=== PATIENT | male | born 1930 | race Caucasian/White ===

== ENCOUNTER 2018-02-15 05:56 | Inpatient (IN) | payer MEDICARE, BC ==
[~2018-02-15] VITALS: Ht 172.7 cm; Wt 83.3 kg
[~2018-02-15 05:56] MED LIST: ACET325T14 PO; ACYC500V IV; ALLO100T30 PO; ALLO300T PO; AMIT25TA PO; AMLO5TAB4 PO; CARB1TAB PO; DORZ10DR26 OP; GLYB5TAB PO; HYDR-3240 PO; INSU100V11 SQ; ISOS20TA3 PO; LATA2.5D2 OP; LEVO25TA2 PO; LISI-167 PO; METF10002 PO; METF500T17 PO; METO25TA4 PO; ONDA4TAB7 PO; PANT40TA3 PO; POLY17PO5 PO; RAMI2.5C2 PO; ROSU20TA PO; SENN-31 PO; TAMS0.4C2 PO; VERA120T PO; WARF-36 PO
[2018-02-15] MEDS ORDERED: PIPERACILLIN/TAZO/PMX 3.375GM 50 ML ONE (06:22)
[2018-02-15] MEDS ORDERED: SODIUM CHLORIDE 0.9% 1,000ML IVBOLUS ONE (06:30)
[2018-02-15] MEDS ORDERED: PIPERACILLIN/TAZO/PMX 3.375GM 50 ML IVPB ONE (06:30)
[2018-02-15] MEDS ORDERED: VANCOMYCIN 1,600 MG in SODIUM CHLORIDE 0.9% 250 ML IV ONE (06:30)
[2018-02-15] MEDS ORDERED: VANCOMYCIN PER PHARMACY IV ONE (06:30)
[2018-02-15 06:48] LABS: INTERNATIONAL NORMALIZED RATIO 1.51 (0.93-1.1); PROTHROMBIN TIME 15.8 Seconds (9.6-11.5)
[2018-02-15 06:52] LABS: ALANINE AMINOTRANSFERASE 35 U/L (12-78); ALBUMIN 3.2 g/dL (3.4-5.0); ANION GAP 10 mmol/L (5-15); CALCIUM 9.4 mg/dL (8.5-10.1); CHLORIDE 100 mmol/L (98-107); CREATININE 1.32 mg/dL (0.7-1.3)
[2018-02-15 06:55] LABS: ALKALINE PHOSPHATASE 111 U/L (45-117); BILIRUBIN,TOTAL 1.2 mg/dL (0.2-1.0); TOTAL PROTEIN 9.3 g/dL (6.4-8.2)
[2018-02-15] MEDS ORDERED: OMNIPAQUE 350 MG/ML, 100ML BOTTLE ONE (07:52)
[2018-02-15 07:59] LABS: BASOPHILS # (AUTO) 0.02 x10^3/uL (0-0.1); BASOPHILS % (AUTO) 0 % (0-1); EOSINOPHILS # (AUTO) 0.03 x10^3/uL (0-0.4); EOSINOPHILS % (AUTO) 0 % (1-7); LYMPHOCYTES # (AUTO) 0.88 x10^3/uL (1-3.4); LYMPHOCYTES % (AUTO) 6 % (22-44); MD NO; MEAN CORPUSCULAR HGB CONC 33.6 g/dL (33.2-36.2); MEAN CORPUSCULAR VOLUME 101.2 fL (81-97); MEAN PLATELET VOLUME 8.8 fL (7.4-10.4); MONOCYTES # (AUTO) 1.22 x10^3/uL (0.2-0.8); MONOCYTES % (AUTO) 9 % (2-9); NEUTROPHILS # (AUTO) 12.23 x10^3/uL (1.8-6.8); NEUTROPHILS % (AUTO) 85 % (42-75); PLATELET COUNT 278 x10^3/uL (130-400); RED CELL DISTRIBUTION WIDTH 14.8 % (9.4-14.8)
[2018-02-15] MEDS ORDERED: LIDOCAINE 1%-EPI 1:100K, 20ML INFIL ONE (08:00)
[2018-02-15] MEDS ORDERED: morphine SULFATE 10 MG/ML, 1ML IVPush PRN (09:00)
[2018-02-15] MEDS ORDERED: ISOSORBIDE MONONITRATE ER 30 MG TABLET PO SCH (09:00)
[2018-02-15] MEDS ORDERED: SODIUM CHLORIDE 0.9% 1,000 ML IV SCH (09:00)
[2018-02-15] MEDS ORDERED: ACETAMINOPHEN 325 MG TABLET PO PRN (09:00)
[2018-02-15] MEDS ORDERED: VANCOMYCIN PER PHARMACY MC PRN (09:00)
[2018-02-15] MEDS ORDERED: ISOSORBIDE MONONITRATE 20 MG TABLET PO SCH ×2 (09:00)
[2018-02-15] MEDS ORDERED: ENALAPRILAT 1.25 MG/ML, 2ML IVPush PRN (09:00)
[2018-02-15] MEDS ORDERED: PHARMACOKINETIC CONSULTATION MC ONE (09:30)
[2018-02-15] MEDS: AMLODIPINE 10 MG TAB PO SCH (09:39)
[2018-02-15] MEDS: ALLOPURINOL 100 MG TABLET PO SCH (09:39)
[2018-02-15] MEDS: METOPROLOL TARTRATE 25 MG TABLET PO SCH ×2 (09:40→20:52)
[2018-02-15] MEDS ORDERED: PHARMACOKINETIC MONITORING MC PRN (10:00)
[2018-02-15 10:12] LABS: HCT (SEDRATE) 46.6 % (39.2-51.8)
[2018-02-15 10:23] LABS: CULTURE INDICATED? YES; MICROSCOPIC AUTO
[2018-02-15] MEDS: CARBIDOPA/LEVODOPA 10 MG/100 MG TABLET PO SCH ×3 (10:34→20:51)
[2018-02-15 11:35] VITALS: BP 159/87
[2018-02-15] MEDS: INSULIN LISPRO 100 UNITS/ML, PEN SQ-INSULIN SCH ×3 (12:56→20:52)
[2018-02-15 13:06] LABS: HEMOGLOBIN A1C 8.4 % (4.2-6.3)
[2018-02-15 13:49] VITALS: BP 116/69
[2018-02-15] MEDS: PIPERACILLIN/TAZO/PMX 3.375GM 50 ML IV SCH ×2 (14:02→22:03)
[2018-02-15] MEDS: ISOSORBIDE MONONITRATE ER 30 MG TABLET PO SCH (16:00)
[2018-02-15] MEDS: SODIUM CHLORIDE 0.9% 1,000 ML IV SCH (16:09)
[2018-02-15] MEDS: SENNA/DOCUSATE TABLET PO SCH (20:51)
[2018-02-15 20:52] VITALS: BP 127/58
[2018-02-15] MEDS: TAMSULOSIN 0.4 MG CAP.ER.24H PO SCH (20:52)
[2018-02-15] MEDS ORDERED: AMITRIPTYLINE 25 MG TABLET PO SCH (21:00)
[2018-02-15] MEDS: LATANOPROST OPHTH 0.005%, 2.5ML OP SCH (21:32)
[2018-02-16 00:55] VITALS: BP 136/70
[2018-02-16] MEDS: SODIUM CHLORIDE 0.9% 1,000 ML IV SCH (01:36)
[2018-02-16 05:23] LABS: BASOPHILS # (AUTO) 0.04 x10^3/uL (0-0.1); BASOPHILS % (AUTO) 0 % (0-1); EOSINOPHILS # (AUTO) 0.07 x10^3/uL (0-0.4); EOSINOPHILS % (AUTO) 1 % (1-7); LYMPHOCYTES # (AUTO) 0.97 x10^3/uL (1-3.4); LYMPHOCYTES % (AUTO) 8 % (22-44); MD NO; MEAN CORPUSCULAR HEMOGLOBIN 34.1 pg (27.5-34.5); MEAN CORPUSCULAR HGB CONC 33.7 g/dL (33.2-36.2); MEAN CORPUSCULAR VOLUME 101.3 fL (81-97); MEAN PLATELET VOLUME 9.5 fL (7.4-10.4); MONOCYTES # (AUTO) 0.83 x10^3/uL (0.2-0.8); MONOCYTES % (AUTO) 7 % (2-9); NEUTROPHILS # (AUTO) 9.74 x10^3/uL (1.8-6.8); NEUTROPHILS % (AUTO) 84 % (42-75); PLATELET COUNT 265 x10^3/uL (130-400); RED BLOOD COUNT 3.88 x10^6/uL (4.38-5.82); RED CELL DISTRIBUTION WIDTH 15.1 % (9.4-14.8)
[2018-02-16 05:27] LABS: CHLORIDE 108 mmol/L (98-107)
[2018-02-16] MEDS: PIPERACILLIN/TAZO/PMX 3.375GM 50 ML IV SCH ×3 (05:49→22:06)
[2018-02-16] MEDS: LEVOTHYROXINE 25 MCG TABLET PO SCH (05:49)
[2018-02-16 05:50] LABS: ALANINE AMINOTRANSFERASE 15 U/L (12-78); ALBUMIN 2.1 g/dL (3.4-5.0); ALKALINE PHOSPHATASE 78 U/L (45-117); ANION GAP 11 mmol/L (5-15); BILIRUBIN,TOTAL 0.8 mg/dL (0.2-1.0); CREATININE 0.98 mg/dL (0.7-1.3); TOTAL PROTEIN 6.6 g/dL (6.4-8.2)
[2018-02-16 06:44] VITALS: BP 158/76
[2018-02-16] MEDS: INSULIN LISPRO 100 UNITS/ML, PEN SQ-INSULIN SCH ×4 (07:00→20:56)
[2018-02-16] MEDS ORDERED: POTASSIUM CHLORIDE 20 MEQ TAB.ER.PRT PO SCH (08:00)
[2018-02-16] MEDS: VANCOMYCIN 1,300 MG in SODIUM CHLORIDE 0.9% 250 ML IV SCH (08:15)
[2018-02-16] MEDS ORDERED: POLYETHYLENE GLYCOL 17 GM PACKET PO PRN (08:30)
[2018-02-16 08:34] LABS: INTERNATIONAL NORMALIZED RATIO 1.52 (0.93-1.1); PROTHROMBIN TIME 15.9 Seconds (9.6-11.5)
[2018-02-16] MEDS: DOCUSATE 100 MG CAPSULE PO SCH ×2 (09:00→20:56)
[2018-02-16] MEDS: ALLOPURINOL 100 MG TABLET PO SCH (09:44)
[2018-02-16] MEDS: CARBIDOPA/LEVODOPA 10 MG/100 MG TABLET PO SCH ×3 (09:44→20:55)
[2018-02-16] MEDS: ISOSORBIDE MONONITRATE ER 30 MG TABLET PO SCH (09:44)
[2018-02-16] MEDS: POTASSIUM CHLORIDE 20 MEQ TAB.ER.PRT PO SCH ×2 (09:44→17:00)
[2018-02-16] MEDS: AMLODIPINE 10 MG TAB PO SCH (09:45)
[2018-02-16] MEDS: METOPROLOL TARTRATE 25 MG TABLET PO SCH ×2 (09:46→20:55)
[2018-02-16 12:15] VITALS: BP 127/74
[2018-02-16 15:23] LABS: TROPONIN I < 0.015 ng/mL (0.000-0.045)
[2018-02-16] MEDS ORDERED: WARFARIN 3 MG TABLET PO-COUM ONE (18:00)
[2018-02-16] MEDS ORDERED: ATORVASTATIN 40 MG TABLET PO SCH (18:42)
[2018-02-16 20:53] VITALS: BP 138/67
[2018-02-16] MEDS: LATANOPROST OPHTH 0.005%, 2.5ML OP SCH (20:55)
[2018-02-16] MEDS: TAMSULOSIN 0.4 MG CAP.ER.24H PO SCH (20:55)
[2018-02-16] MEDS: ATORVASTATIN 40 MG TABLET PO SCH (20:56)
[2018-02-16] MEDS: SENNA/DOCUSATE TABLET PO SCH (20:57)
[2018-02-17 01:28] VITALS: BP 149/69
[2018-02-17 05:14] LABS: BASOPHILS # (AUTO) 0.03 x10^3/uL (0-0.1); BASOPHILS % (AUTO) 0 % (0-1); EOSINOPHILS # (AUTO) 0.07 x10^3/uL (0-0.4); EOSINOPHILS % (AUTO) 1 % (1-7); LYMPHOCYTES # (AUTO) 0.67 x10^3/uL (1-3.4); LYMPHOCYTES % (AUTO) 5 % (22-44); MD NO; MEAN CORPUSCULAR HEMOGLOBIN 34.3 pg (27.5-34.5); MEAN CORPUSCULAR VOLUME 100.7 fL (81-97); MEAN PLATELET VOLUME 9.4 fL (7.4-10.4); MONOCYTES # (AUTO) 0.83 x10^3/uL (0.2-0.8); MONOCYTES % (AUTO) 7 % (2-9); NEUTROPHILS # (AUTO) 10.98 x10^3/uL (1.8-6.8); NEUTROPHILS % (AUTO) 87 % (42-75); PLATELET COUNT 299 x10^3/uL (130-400); RED BLOOD COUNT 4.03 x10^6/uL (4.38-5.82); RED CELL DISTRIBUTION WIDTH 14.6 % (9.4-14.8)
[2018-02-17 05:21] LABS: INTERNATIONAL NORMALIZED RATIO 1.6 (0.93-1.1); PROTHROMBIN TIME 16.7 Seconds (9.6-11.5)
[2018-02-17 05:25] LABS: ALBUMIN 2.2 g/dL (3.4-5.0); ANION GAP 9 mmol/L (5-15); CALCIUM 8.6 mg/dL (8.5-10.1); CHLORIDE 106 mmol/L (98-107)
[2018-02-17 05:30] LABS: ALANINE AMINOTRANSFERASE 11 U/L (12-78); ALKALINE PHOSPHATASE 83 U/L (45-117); BILIRUBIN,TOTAL 0.8 mg/dL (0.2-1.0); CREATININE 0.98 mg/dL (0.7-1.3); TOTAL PROTEIN 6.7 g/dL (6.4-8.2)
[2018-02-17] MEDS: LEVOTHYROXINE 25 MCG TABLET PO SCH (06:02)
[2018-02-17] MEDS: PIPERACILLIN/TAZO/PMX 3.375GM 50 ML IV SCH ×3 (06:02→22:15)
[2018-02-17] MEDS: INSULIN LISPRO 100 UNITS/ML, PEN SQ-INSULIN SCH ×4 (07:00→20:30)
[2018-02-17 07:21] VITALS: BP 155/86
[2018-02-17] MEDS: VANCOMYCIN 1,300 MG in SODIUM CHLORIDE 0.9% 250 ML IV SCH (08:06)
[2018-02-17] MEDS: POTASSIUM CHLORIDE 20 MEQ TAB.ER.PRT PO SCH ×3 (09:00→20:32)
[2018-02-17] MEDS: DOCUSATE 100 MG CAPSULE PO SCH ×2 (09:00→20:31)
[2018-02-17] MEDS: ISOSORBIDE MONONITRATE ER 30 MG TABLET PO SCH (09:43)
[2018-02-17] MEDS: METOPROLOL TARTRATE 25 MG TABLET PO SCH ×2 (09:43→20:32)
[2018-02-17] MEDS: AMLODIPINE 10 MG TAB PO SCH (09:43)
[2018-02-17] MEDS: CARBIDOPA/LEVODOPA 10 MG/100 MG TABLET PO SCH ×3 (09:43→20:30)
[2018-02-17 10:42] LABS: CLOSTRIDIUM DIFFICILE ANTIGEN NEGATIVE; CLOSTRIDIUM DIFFICILE TOXIN NEGATIVE (Negative)
[2018-02-17 12:00] VITALS: BP 116/75
[2018-02-17] MEDS: ALLOPURINOL 100 MG TABLET PO SCH (16:52)
[2018-02-17 20:30] VITALS: BP 152/67
[2018-02-17] MEDS: LATANOPROST OPHTH 0.005%, 2.5ML OP SCH (20:31)
[2018-02-17] MEDS: ATORVASTATIN 40 MG TABLET PO SCH (20:32)
[2018-02-17] MEDS: TAMSULOSIN 0.4 MG CAP.ER.24H PO SCH (20:32)
[2018-02-17] MEDS: SENNA/DOCUSATE TABLET PO SCH (20:33)
[2018-02-18 01:21] VITALS: BP 148/75
[2018-02-18 05:18] LABS: BASOPHILS # (AUTO) 0.01 x10^3/uL (0-0.1); BASOPHILS % (AUTO) 0 % (0-1); EOSINOPHILS # (AUTO) 0.05 x10^3/uL (0-0.4); EOSINOPHILS % (AUTO) 0 % (1-7); LYMPHOCYTES # (AUTO) 0.85 x10^3/uL (1-3.4); LYMPHOCYTES % (AUTO) 7 % (22-44); MD NO; MEAN CORPUSCULAR HEMOGLOBIN 34.3 pg (27.5-34.5); MEAN CORPUSCULAR VOLUME 100.8 fL (81-97); MEAN PLATELET VOLUME 9.6 fL (7.4-10.4); MONOCYTES # (AUTO) 0.69 x10^3/uL (0.2-0.8); MONOCYTES % (AUTO) 6 % (2-9); NEUTROPHILS # (AUTO) 9.97 x10^3/uL (1.8-6.8); NEUTROPHILS % (AUTO) 86 % (42-75); PLATELET COUNT 334 x10^3/uL (130-400); RED CELL DISTRIBUTION WIDTH 14.8 % (9.4-14.8)
[2018-02-18 05:23] LABS: INTERNATIONAL NORMALIZED RATIO 1.62 (0.93-1.1); PROTHROMBIN TIME 16.9 Seconds (9.6-11.5)
[2018-02-18 05:27] LABS: CHLORIDE 111 mmol/L (98-107)
[2018-02-18] MEDS: PIPERACILLIN/TAZO/PMX 3.375GM 50 ML IV SCH ×3 (05:31→22:47)
[2018-02-18] MEDS: LEVOTHYROXINE 25 MCG TABLET PO SCH (05:31)
[2018-02-18 05:33] LABS: ALANINE AMINOTRANSFERASE 18 U/L (12-78); ALBUMIN 2.2 g/dL (3.4-5.0); ALKALINE PHOSPHATASE 84 U/L (45-117); ANION GAP 9 mmol/L (5-15); BILIRUBIN,TOTAL 0.9 mg/dL (0.2-1.0); CALCIUM 8.3 mg/dL (8.5-10.1); TOTAL PROTEIN 6.4 g/dL (6.4-8.2)
[2018-02-18 06:30] VITALS: BP 153/67
[2018-02-18] MEDS: INSULIN LISPRO 100 UNITS/ML, PEN SQ-INSULIN SCH ×4 (07:36→20:14)
[2018-02-18] MEDS: METOPROLOL TARTRATE 50 MG TABLET PO SCH ×2 (07:37→19:59)
[2018-02-18] MEDS: LISINOPRIL 20 MG TABLET PO SCH (07:37)
[2018-02-18] MEDS: AMLODIPINE 10 MG TAB PO SCH (07:37)
[2018-02-18] MEDS: CARBIDOPA/LEVODOPA 10 MG/100 MG TABLET PO SCH ×3 (07:37→19:59)
[2018-02-18] MEDS: ALLOPURINOL 100 MG TABLET PO SCH (07:37)
[2018-02-18] MEDS: DOCUSATE 100 MG CAPSULE PO SCH ×2 (07:37→19:58)
[2018-02-18] MEDS: ISOSORBIDE MONONITRATE ER 30 MG TABLET PO SCH (07:37)
[2018-02-18] MEDS: POTASSIUM CHLORIDE 20 MEQ TAB.ER.PRT PO SCH ×3 (07:37→19:58)
[2018-02-18] MEDS ORDERED: LOPERAMIDE 2 MG CAPSULE PO PRN (08:00)
[2018-02-18] MEDS: SODIUM CHLORIDE 0.9% 1,000 ML IV SCH (08:19)
[2018-02-18] MEDS: VANCOMYCIN 1,300 MG in SODIUM CHLORIDE 0.9% 250 ML IV SCH (08:24)
[2018-02-18] MEDS ORDERED: WARFARIN 5 MG TABLET PO-COUM ONE (09:00)
[2018-02-18 12:00] VITALS: BP 114/56
[2018-02-18] MEDS: ATORVASTATIN 40 MG TABLET PO SCH (19:58)
[2018-02-18] MEDS: TAMSULOSIN 0.4 MG CAP.ER.24H PO SCH (19:58)
[2018-02-18] MEDS: SENNA/DOCUSATE TABLET PO SCH (19:59)
[2018-02-18] MEDS: LATANOPROST OPHTH 0.005%, 2.5ML OP SCH (20:16)
[2018-02-18 20:26] VITALS: BP 169/84
[2018-02-19] MEDS: SODIUM CHLORIDE 0.9% 1,000 ML IV SCH (01:23)
[2018-02-19] MEDS: VANCOMYCIN 1,300 MG in SODIUM CHLORIDE 0.9% 250 ML IV SCH ×2 (02:40→22:36)
[2018-02-19 02:49] VITALS: BP 161/74
[2018-02-19] MEDS: LEVOTHYROXINE 25 MCG TABLET PO SCH (04:52)
[2018-02-19 06:16] LABS: BASOPHILS # (AUTO) 0.08 x10^3/uL (0-0.1); BASOPHILS % (AUTO) 1 % (0-1); EOSINOPHILS # (AUTO) 0.22 x10^3/uL (0-0.4); EOSINOPHILS % (AUTO) 2 % (1-7); LYMPHOCYTES # (AUTO) 0.96 x10^3/uL (1-3.4); LYMPHOCYTES % (AUTO) 9 % (22-44); MD NO; MEAN CORPUSCULAR HEMOGLOBIN 34.1 pg (27.5-34.5); MEAN CORPUSCULAR HGB CONC 33.7 g/dL (33.2-36.2); MEAN CORPUSCULAR VOLUME 101.2 fL (81-97); MEAN PLATELET VOLUME 9.4 fL (7.4-10.4); MONOCYTES # (AUTO) 0.71 x10^3/uL (0.2-0.8); MONOCYTES % (AUTO) 7 % (2-9); NEUTROPHILS # (AUTO) 8.55 x10^3/uL (1.8-6.8); NEUTROPHILS % (AUTO) 81 % (42-75); PLATELET COUNT 333 x10^3/uL (130-400); RED BLOOD COUNT 4.01 x10^6/uL (4.38-5.82); RED CELL DISTRIBUTION WIDTH 15.1 % (9.4-14.8)
[2018-02-19] MEDS: PIPERACILLIN/TAZO/PMX 3.375GM 50 ML IV SCH (06:19)
[2018-02-19 06:23] LABS: INTERNATIONAL NORMALIZED RATIO 1.87 (0.93-1.1); PROTHROMBIN TIME 19.4 Seconds (9.6-11.5)
[2018-02-19 06:28] VITALS: BP 151/65
[2018-02-19 06:28] LABS: ALBUMIN 2.1 g/dL (3.4-5.0); ANION GAP 11 mmol/L (5-15); CALCIUM 8.3 mg/dL (8.5-10.1); CHLORIDE 116 mmol/L (98-107)
[2018-02-19 06:33] LABS: ALANINE AMINOTRANSFERASE 18 U/L (12-78); ALKALINE PHOSPHATASE 82 U/L (45-117); BILIRUBIN,TOTAL 0.6 mg/dL (0.2-1.0); CREATININE 1.16 mg/dL (0.7-1.3); TOTAL PROTEIN 6.6 g/dL (6.4-8.2)
[2018-02-19] MEDS: INSULIN LISPRO 100 UNITS/ML, PEN SQ-INSULIN SCH ×4 (07:00→21:56)
[2018-02-19] MEDS: ISOSORBIDE MONONITRATE ER 30 MG TABLET PO SCH (08:58)
[2018-02-19] MEDS: AMLODIPINE 10 MG TAB PO SCH (08:58)
[2018-02-19] MEDS: DOCUSATE 100 MG CAPSULE PO SCH ×2 (08:58→20:47)
[2018-02-19] MEDS: CARBIDOPA/LEVODOPA 10 MG/100 MG TABLET PO SCH ×3 (08:58→21:56)
[2018-02-19] MEDS: METOPROLOL TARTRATE 50 MG TABLET PO SCH ×2 (08:58→21:56)
[2018-02-19] MEDS: ALLOPURINOL 100 MG TABLET PO SCH (08:59)
[2018-02-19] MEDS: POTASSIUM CHLORIDE 20 MEQ TAB.ER.PRT PO SCH ×3 (09:00→21:56)
[2018-02-19] MEDS: LISINOPRIL 20 MG TABLET PO SCH (09:00)
[2018-02-19] MEDS: AMPICILLIN/SULBACTAM 3 GM in SODIUM CHLORIDE 0.9% 100 ML IV SCH ×3 (09:28→21:41)
[2018-02-19 12:53] VITALS: BP 101/57
[2018-02-19] MEDS ORDERED: WARFARIN 3 MG TABLET PO-COUM ONE (18:00)
[2018-02-19 19:11] VITALS: BP 127/54
[2018-02-19] MEDS: SENNA/DOCUSATE TABLET PO SCH (20:47)
[2018-02-19] MEDS: LATANOPROST OPHTH 0.005%, 2.5ML OP SCH (21:55)
[2018-02-19] MEDS: TAMSULOSIN 0.4 MG CAP.ER.24H PO SCH (21:56)
[2018-02-19] MEDS: ATORVASTATIN 40 MG TABLET PO SCH (21:56)
[2018-02-20 03:00] VITALS: BP 142/70
[2018-02-20] MEDS: AMPICILLIN/SULBACTAM 3 GM in SODIUM CHLORIDE 0.9% 100 ML IV SCH ×4 (03:33→21:48)
[2018-02-20] MEDS: LEVOTHYROXINE 25 MCG TABLET PO SCH (05:08)
[2018-02-20 06:02] LABS: BASOPHILS # (AUTO) 0.04 x10^3/uL (0-0.1); BASOPHILS % (AUTO) 0 % (0-1); EOSINOPHILS # (AUTO) 0.24 x10^3/uL (0-0.4); EOSINOPHILS % (AUTO) 2 % (1-7); LYMPHOCYTES # (AUTO) 1.04 x10^3/uL (1-3.4); LYMPHOCYTES % (AUTO) 10 % (22-44); MD NO; MEAN CORPUSCULAR HEMOGLOBIN 33.3 pg (27.5-34.5); MEAN CORPUSCULAR HGB CONC 32.7 g/dL (33.2-36.2); MEAN CORPUSCULAR VOLUME 101.8 fL (81-97); MEAN PLATELET VOLUME 9.1 fL (7.4-10.4); MONOCYTES # (AUTO) 0.71 x10^3/uL (0.2-0.8); MONOCYTES % (AUTO) 7 % (2-9); NEUTROPHILS # (AUTO) 8.28 x10^3/uL (1.8-6.8); NEUTROPHILS % (AUTO) 80 % (42-75); PLATELET COUNT 374 x10^3/uL (130-400); RED BLOOD COUNT 4.27 x10^6/uL (4.38-5.82); RED CELL DISTRIBUTION WIDTH 15.4 % (9.4-14.8)
[2018-02-20 06:14] LABS: ALBUMIN 2.3 g/dL (3.4-5.0); ANION GAP 9 mmol/L (5-15); CALCIUM 8.5 mg/dL (8.5-10.1); CHLORIDE 115 mmol/L (98-107)
[2018-02-20 06:17] LABS: ALANINE AMINOTRANSFERASE 18 U/L (12-78); ALKALINE PHOSPHATASE 114 U/L (45-117); BILIRUBIN,TOTAL 0.5 mg/dL (0.2-1.0); CREATININE 1.17 mg/dL (0.7-1.3); TOTAL PROTEIN 7.3 g/dL (6.4-8.2)
[2018-02-20] MEDS: DEXTROSE 5% 250 ML IV SCH ×2 (06:31→07:30)
[2018-02-20 06:43] LABS: INTERNATIONAL NORMALIZED RATIO 2.91 (0.93-1.1); PROTHROMBIN TIME 29.6 Seconds (9.6-11.5)
[2018-02-20 06:50] VITALS: BP 132/66
[2018-02-20] MEDS: INSULIN LISPRO 100 UNITS/ML, PEN SQ-INSULIN SCH ×4 (07:45→21:47)
[2018-02-20] MEDS: D5%-0.45% NACL 1,000 ML IV SCH ×2 (07:45→21:31)
[2018-02-20] MEDS ORDERED: HOLD COUMADIN MC PRN (08:00)
[2018-02-20] MEDS: DOCUSATE 100 MG CAPSULE PO SCH ×2 (09:00→20:22)
[2018-02-20] MEDS: ISOSORBIDE MONONITRATE ER 30 MG TABLET PO SCH (09:07)
[2018-02-20] MEDS: ALLOPURINOL 100 MG TABLET PO SCH (09:07)
[2018-02-20] MEDS: AMLODIPINE 10 MG TAB PO SCH (09:07)
[2018-02-20] MEDS: LISINOPRIL 20 MG TABLET PO SCH (09:07)
[2018-02-20] MEDS: METOPROLOL TARTRATE 50 MG TABLET PO SCH ×2 (09:08→21:47)
[2018-02-20] MEDS: CARBIDOPA/LEVODOPA 10 MG/100 MG TABLET PO SCH ×3 (09:08→21:47)
[2018-02-20 12:03] VITALS: BP 116/56
[2018-02-20] MEDS: DOXYCYCLINE 100MG TABLET PO SCH ×2 (13:57→21:47)
[2018-02-20 20:00] VITALS: BP 143/70
[2018-02-20] MEDS: SENNA/DOCUSATE TABLET PO SCH (21:00)
[2018-02-20] MEDS: ATORVASTATIN 40 MG TABLET PO SCH (21:47)
[2018-02-20] MEDS: TAMSULOSIN 0.4 MG CAP.ER.24H PO SCH (21:48)
[2018-02-20] MEDS: LATANOPROST OPHTH 0.005%, 2.5ML OP SCH (21:48)
[2018-02-20 21:51] VITALS: BP 145/69
[2018-02-21 01:25] VITALS: BP 138/66
[2018-02-21] MEDS: AMPICILLIN/SULBACTAM 3 GM in SODIUM CHLORIDE 0.9% 100 ML IV SCH ×2 (04:19→10:28)
[2018-02-21 05:51] LABS: BASOPHILS # (AUTO) 0.05 x10^3/uL (0-0.1); BASOPHILS % (AUTO) 1 % (0-1); EOSINOPHILS # (AUTO) 0.23 x10^3/uL (0-0.4); EOSINOPHILS % (AUTO) 3 % (1-7); LYMPHOCYTES # (AUTO) 1.03 x10^3/uL (1-3.4); LYMPHOCYTES % (AUTO) 14 % (22-44); MD NO; MEAN CORPUSCULAR HEMOGLOBIN 33.5 pg (27.5-34.5); MEAN CORPUSCULAR HGB CONC 33.4 g/dL (33.2-36.2); MEAN CORPUSCULAR VOLUME 100.5 fL (81-97); MEAN PLATELET VOLUME 8.8 fL (7.4-10.4); MONOCYTES # (AUTO) 0.64 x10^3/uL (0.2-0.8); MONOCYTES % (AUTO) 9 % (2-9); NEUTROPHILS # (AUTO) 5.27 x10^3/uL (1.8-6.8); NEUTROPHILS % (AUTO) 73 % (42-75); PLATELET COUNT 325 x10^3/uL (130-400); RED BLOOD COUNT 3.97 x10^6/uL (4.38-5.82); RED CELL DISTRIBUTION WIDTH 15.4 % (9.4-14.8)
[2018-02-21] MEDS: LEVOTHYROXINE 25 MCG TABLET PO SCH (05:54)
[2018-02-21 05:56] LABS: INTERNATIONAL NORMALIZED RATIO 3.28 (0.93-1.1); PROTHROMBIN TIME 33.2 Seconds (9.6-11.5)
[2018-02-21 06:01] LABS: ANION GAP 6 mmol/L (5-15); CALCIUM 8.1 mg/dL (8.5-10.1); CHLORIDE 112 mmol/L (98-107)
[2018-02-21 06:04] LABS: ALANINE AMINOTRANSFERASE 14 U/L (12-78); ALKALINE PHOSPHATASE 68 U/L (45-117); BILIRUBIN,TOTAL 0.6 mg/dL (0.2-1.0); CREATININE 1.13 mg/dL (0.7-1.3); TOTAL PROTEIN 6.3 g/dL (6.4-8.2)
[2018-02-21] MEDS: ALLOPURINOL 100 MG TABLET PO SCH (07:58)
[2018-02-21] MEDS: DOCUSATE 100 MG CAPSULE PO SCH (07:58)
[2018-02-21] MEDS: METOPROLOL TARTRATE 50 MG TABLET PO SCH (07:58)
[2018-02-21] MEDS: CARBIDOPA/LEVODOPA 10 MG/100 MG TABLET PO SCH (07:58)
[2018-02-21] MEDS: ISOSORBIDE MONONITRATE ER 30 MG TABLET PO SCH (07:59)
[2018-02-21] MEDS: AMLODIPINE 10 MG TAB PO SCH (07:59)
[2018-02-21] MEDS: DOXYCYCLINE 100MG TABLET PO SCH (07:59)
[2018-02-21] MEDS: LISINOPRIL 20 MG TABLET PO SCH (07:59)
[2018-02-21] MEDS: D5%-0.45% NACL 1,000 ML IV SCH (07:59)
[2018-02-21 08:00] VITALS: BP 128/68
[2018-02-21] MEDS: INSULIN LISPRO 100 UNITS/ML, PEN SQ-INSULIN SCH ×2 (09:03→11:59)
[2018-02-21] MEDS ORDERED: DOXY100T PO (11:43)
[2018-02-21] MEDS ORDERED: METO50TA82 PO (11:43)
[2018-02-21] MEDS ORDERED: LISI-170 PO (11:43)
[2018-02-21] MEDS ORDERED: AMPI3VIA IV (11:45)
[2018-02-21 12:08] VITALS: BP 101/54
== END 2018-02-21 14:45 | DRG 871 ==
LOC: ED 08:05 → EDIP 08:53 → 4EST 09:03
PROVIDERS: ADMIT Internal Medicine; ATTEND Internal Medicine
PROC: 0T7D8ZZ Dilation of Urethra, Via Natural or Artificial Opening Endoscopic (ICD-10-PCS; principal; 2018-02-15)
PROC: 0T9B80Z Drainage of Bladder with Drainage Device, Via Natural or Artificial Opening Endoscopic (ICD-10-PCS; 2018-02-15)
DX: A41.9 Sepsis, unspecified organism (principal); N17.0 Acute kidney failure with tubular necrosis; E43 Unspecified severe protein-calorie malnutrition; L03.116 Cellulitis of left lower limb; E87.1 Hypo-osmolality and hyponatremia; D68.9 Coagulation defect, unspecified; E87.0 Hyperosmolality and hypernatremia; K56.7 Ileus, unspecified; N10 Acute pyelonephritis; I82.812 Embolism and thrombosis of superficial veins of left lower extremity; R65.20 Severe sepsis without septic shock; I10 Essential (primary) hypertension; E11.65 Type 2 diabetes mellitus with hyperglycemia; G20 Parkinson's disease; I35.0 Nonrheumatic aortic (valve) stenosis; I25.2 Old myocardial infarction; I48.91 Unspecified atrial fibrillation; E03.9 Hypothyroidism, unspecified; Z68.27 Body mass index [BMI] 27.0-27.9, adult; E78.00 Pure hypercholesterolemia, unspecified; M10.9 Gout, unspecified; E78.5 Hyperlipidemia, unspecified; E87.6 Hypokalemia; F03.90 Unspecified dementia, unspecified severity, without behavioral disturbance, psychotic disturbance, mood disturbance, and anxiety; I25.10 Atherosclerotic heart disease of native coronary artery without angina pectoris; I65.29 Occlusion and stenosis of unspecified carotid artery; K76.0 Fatty (change of) liver, not elsewhere classified; N35.919 Unspecified urethral stricture, male, unspecified site; N40.0 Benign prostatic hyperplasia without lower urinary tract symptoms; Z66 Do not resuscitate; Z79.01 Long term (current) use of anticoagulants; Z79.4 Long term (current) use of insulin; Z79.899 Other long term (current) drug therapy; R33.9 Retention of urine, unspecified; W18.39XA Other fall on same level, initial encounter; Y93.89 Activity, other specified; Y92.89 Other specified places as the place of occurrence of the external cause; Y99.8 Other external cause status
CPT/HCPCS: 36415; 70450; 71045; 74018; 76700; 80053; 80202; 81001; 82607; 82962; 83036; 83605; 83735; 84100; 84145; 84439; 84443; 84484; 85025; 85610; 85651; 87040; 87070; 87086; 87205; 87324; 93005; 96374; 96375; 99291; G0378; J0295; J2543; J3370; J7060; Q9967; J1815; J7030; J7050

== ENCOUNTER 2018-06-05 15:27 | Outpatient (CLI) | payer MEDICARE, BC ==
[~2018-06-05 15:27] MED LIST changes: +AMPI3VIA IV; +DOXY100T PO; +LISI-170 PO; +METO50TA82 PO; -ROSU20TA PO; +ROSU20TA2 PO
== END 2018-06-05 23:59 | disposition home or self-care (01) ==
LOC: CFH 15:27
PROVIDERS: ATTEND Family Medicine
DX: N45.3 Epididymo-orchitis (principal); N43.3 Hydrocele, unspecified
CPT/HCPCS: 76870; 93975